=== PATIENT | female | born 1985 | race African-American/Black ===

== ENCOUNTER 2017-04-06 06:26 | Emergency (ER) | payer SELFPAY ==
[~2017-04-06] VITALS: Ht 157.5 cm; Wt 56.4 kg
[2017-04-06 06:27] VITALS: BP 114/73; PULSE 78; RESP 16; TEMP 97.9; O2SAT 97
[2017-04-06] MEDS ORDERED: SODIUM CHLOR 0.9% 1000 ML INJ 1,000 ML IV SCH (06:54)
--- NOTE | 2017-04-06 06:57 | PD ---
HPI Chief Complaint: Abdominal Pain Time Seen by Provider: 06:50 Travel History International Travel<30 days: No Contact w/Intl Traveler<30days: No Traveled to known affect area: No History of Present Illness HPI The patient is a 32-year-old [place] female who presents to the emergency department for epigastric abdominal pain, nausea, vomiting, and diarrhea. The patient's symptoms started at midnight last night. She does complain of intermittent sharp epigastric abdominal pain that radiates to the back and is associated with nausea, vomiting, diarrhea. The diarrhea is described as loose, watery, brown, without any visible blood. She does have a history of similar symptoms in the past and states her enzymes were elevated, she was admitted for 3 days. She denies any known history of pancreatitis or gallstones. She does note a previous section. She is currently on Mirena, denies . She denies any dysuria, frequency, urgency, or vaginal bleeding. She denies any assisted fever. Symptoms are moderate without any alleviating or exacerbating factors. [facility] Past Medical History Medical History: Denies Significant Hx Tetanus Vaccination: < 5 Years Influenza Vaccination: No ?: Not LMP: JEFF : 1 Para: 1 Past Surgical History Section: Yes Social History Alcohol Use: Yes Tobacco Use: No Substance Use: No Allergies-Medications (Allergen,Severity, Reaction): Coded Allergies: No Known Allergies (Unverified , 04/06/17) Reported Meds & Prescriptions Reported Meds & Active Scripts Active No Active Prescriptions or Reported Medications Review of Systems Except as stated in HPI: all other systems reviewed are Neg General / Constitutional: No: Fever Cardiovascular: No: Chest Pain or Discomfort Respiratory: No: Shortness of Breath Gastrointestinal: Positive: Nausea, Vomiting, Diarrhea, Abdominal Pain Genitourinary: No: Urgency, Frequency, Dysuria, Hematuria, Discharge, Vaginal Bleeding Physical Exam Narrative GENERAL: Awake, alert, pleasant 32-year-old female who appears her stated age and is in no acute respiratory distress. SKIN: Focused skin assessment warm/dry. HEAD: Atraumatic. Normocephalic. EYES: Pupils equal and round. No scleral icterus. No injection or drainage. ENT: No nasal bleeding or discharge. Mucous membranes pink and moist. NECK: Trachea midline. No JVD. CARDIOVASCULAR: Regular rate and rhythm. No murmur appreciated. RESPIRATORY: No accessory muscle use. Clear to auscultation. Breath sounds equal bilaterally. GASTROINTESTINAL: Abdomen soft, non-tender, nondistended. No guarding or rigidity. MUSCULOSKELETAL: No obvious deformities. No clubbing. No cyanosis. No edema. NEUROLOGICAL: Awake and alert. No obvious cranial nerve deficits. Motor grossly within normal limits. Normal speech. PSYCHIATRIC: Appropriate mood and affect; insight and judgment normal. Data Data Last Documented VS Vital Signs Date Time Temp Pulse Resp B/P (MAP) Pulse Ox O2 Delivery O2 Flow Rate FiO2 04/06/17 07:05 16 04/06/17 06:27 97.9 78 97 Room Air Orders Orders Complete Blood Count With Diff (04/06/17 06:54) Comprehensive Metabolic Panel (04/06/17 06:54) Lipase (04/06/17 06:54) Iv Access Insert/Monitor (04/06/17 06:54) Ecg Monitoring (04/06/17 06:54) Oximetry (04/06/17 06:54) Sodium Chlor 0.9% 1000 Ml Inj (Ns 1000 M (04/06/17 06:54) Sodium Chloride 0.9% Flush (Ns Flush) (04/06/17 07:00) Famotidine Inj (Pepcid Inj) (04/06/17 07:00) Al-Mag Hy-Si 40-40-4 Mg/Ml Liq (Mag-Al P (04/06/17 07:00) Lidocaine 2% Viscous (Xylocaine 2% Visco (04/06/17 07:00) Labs Laboratory Tests Test 04/06/17 07:15 White Blood Count 8.6 TH/MM3 Red Blood Count 4.25 MIL/MM3 Hemoglobin 13.9 GM/DL Hematocrit 39.6 % Mean Corpuscular Volume 93.4 FL Mean Corpuscular Hemoglobin 32.8 PG Mean Corpuscular Hemoglobin Concent 35.1 % Red Cell Distribution Width 13.1 % Platelet Count 292 TH/MM3 Mean Platelet Volume 8.0 FL Neutrophils (%) (Auto) 71.0 % Lymphocytes (%) (Auto) 20.7 % Monocytes (%) (Auto) 7.3 % Eosinophils (%) (Auto) 0.7 % Basophils (%) (Auto) 0.3 % Neutrophils # (Auto) 6.1 TH/MM3 Lymphocytes # (Auto) 1.8 TH/MM3 Monocytes # (Auto) 0.6 TH/MM3 Eosinophils # (Auto) 0.1 TH/MM3 Basophils # (Auto) 0.0 TH/MM3 CBC Comment DIFF FINAL Differential Comment Blood Urea Nitrogen 8 MG/DL Creatinine 1.02 MG/DL Random Glucose 94 MG/DL Total Protein 8.4 GM/DL Albumin 4.2 GM/DL Calcium Level 9.1 MG/DL Alkaline Phosphatase 69 U/L Aspartate Amino Transf (AST/SGOT) 23 U/L Alanine Aminotransferase (ALT/SGPT) 20 U/L Total Bilirubin 0.6 MG/DL Sodium Level 139 MEQ/L Potassium Level 4.0 MEQ/L Chloride Level 106 MEQ/L Carbon Dioxide Level 24.1 MEQ/L Anion Gap 9 MEQ/L Estimat Glomerular Filtration Rate 76 ML/MIN Lipase 78 U/L MDM Medical Decision Making Medical Screen Exam Complete: Yes Emergency Medical Condition: Yes Medical Record Reviewed: Yes Interpretation(s) Laboratory Tests Test 04/06/17 07:15 White Blood Count 8.6 TH/MM3 Red Blood Count 4.25 MIL/MM3 Hemoglobin 13.9 GM/DL Hematocrit 39.6 % Mean Corpuscular Volume 93.4 FL Mean Corpuscular Hemoglobin 32.8 PG Mean Corpuscular Hemoglobin Concent 35.1 % Red Cell Distribution Width 13.1 % Platelet Count 292 TH/MM3 Mean Platelet Volume 8.0 FL Neutrophils (%) (Auto) 71.0 % Lymphocytes (%) (Auto) 20.7 % Monocytes (%) (Auto) 7.3 % Eosinophils (%) (Auto) 0.7 % Basophils (%) (Auto) 0.3 % Neutrophils # (Auto) 6.1 TH/MM3 Lymphocytes # (Auto) 1.8 TH/MM3 Monocytes # (Auto) 0.6 TH/MM3 Eosinophils # (Auto) 0.1 TH/MM3 Basophils # (Auto) 0.0 TH/MM3 CBC Comment DIFF FINAL Differential Comment Blood Urea Nitrogen 8 MG/DL Creatinine 1.02 MG/DL Random Glucose 94 MG/DL Total Protein 8.4 GM/DL Albumin 4.2 GM/DL Calcium Level 9.1 MG/DL Alkaline Phosphatase 69 U/L Aspartate Amino Transf (AST/SGOT) 23 U/L Alanine Aminotransferase (ALT/SGPT) 20 U/L Total Bilirubin 0.6 MG/DL Sodium Level 139 MEQ/L Potassium Level 4.0 MEQ/L Chloride Level 106 MEQ/L Carbon Dioxide Level 24.1 MEQ/L Anion Gap 9 MEQ/L Estimat Glomerular Filtration Rate 76 ML/MIN Lipase 78 U/L Differential Diagnosis Differential diagnosis includes gastritis, gastroenteritis, food poisoning, pancreatitis, biliary colic, cholecystitis, choledocholithiasis, viral syndrome , peptic ulcer disease. Narrative Course IV was established, labs are drawn and sent, and the patient was placed on cardiac telemetry monitoring and continuous pulse oximetry monitoring. The patient was administered GI cocktail, Pepcid, and IV fluids. Lipase and LFTs were sent to lab. The patient's white count is unremarkable. LFTs and lipase are normal, no evidence of pancreatitis. The patient was able to tolerate a by mouth challenge with water in the emergency department. The patient was reevaluated at 8:23 AM. The patient's symptoms have improved. The patient will be discharged home with Zofran as needed, is advised to have a clear liquid diet and advance diet as tolerated. Follow-up with a primary physician. Return if symptoms worsen or progress. Diagnosis Primary Impression: Gastroenteritis Patient Instructions: General Instructions Additional Instructions: Zofran as directed. Clear liquid diet and advance as tolerated. Please provide the patient a copy of her labs at discharge. Follow-up with her primary physician. Return if symptoms worsen or progress. Med/Other Pt SpecificInfo: Prescription(s) given Scripts Ondansetron Odt (Zofran Odt) 4 Mg Tab 4 MG SL Q6HR Y for Nausea/Vomiting, #7 TAB 0 Refills Prov: Shaw Rodriguez MD 04/06/17 Disposition: DISCHARGE HOME Condition: Stable Shaw Rodriguez MD Apr 06, 2017 06:57
[2017-04-06] MEDS ORDERED: LIDOCAINE VISCOUS 2% SOLN 15 ML UDC PO ONE (07:00)
[2017-04-06] MEDS ORDERED: SODIUM CHLORIDE 0.9% FLUSH 10 ML FLUSH IV FLUSH PRN (07:00)
[2017-04-06] MEDS ORDERED: FAMOTIDINE 20 MG/2 ML VIAL IV PUSH ONE (07:00)
[2017-04-06] MEDS ORDERED: ALUMINUM/MAGNESIUM/SIMETH 30 ML CUP PO ONE (07:00)
[2017-04-06 07:05] VITALS: RESP 16
[2017-04-06 07:28] LABS: AUTOMATED NEUTROPHIL # 6.1 TH/MM3 (1.8-7.7); BASOPHIL % 0.3 % (0.0-2.0); EOSINOPHIL # 0.1 TH/MM3 (0-0.4); EOSINOPHIL % 0.7 % (0.0-4.0); HEMATOCRIT 39.6 % (35.0-46.0); HEMOGLOBIN 13.9 GM/DL (11.6-15.3); LYMPH % 20.7 % (9.0-44.0); LYMPHOCYTE # 1.8 TH/MM3 (1.0-4.8); MEAN CELL VOLUME 93.4 FL (80.0-100.0); MEAN CORPUSCULAR HEMOGLOBIN 32.8 PG (27.0-34.0); MEAN CORPUSCULAR HGB CONC 35.1 % (32.0-36.0); MONO % 7.3 % (0.0-8.0); MONOCYTE # 0.6 TH/MM3 (0-0.9); PLATELET COUNT 292 TH/MM3 (150-450); RED BLOOD COUNT 4.25 MIL/MM3 (4.00-5.30); RED CELL DISTRIBUTION WIDTH 13.1 % (11.6-17.2); WHITE BLOOD COUNT 8.6 TH/MM3 (4.0-11.0)
[2017-04-06 08:02] LABS: ALT (GPT) 20 U/L (10-53)
[2017-04-06 08:05] LABS: ALKALINE PHOSPHATASE 69 U/L (45-117); TOTAL BILIRUBIN ADULT 0.6 MG/DL (0.2-1.0); TOTAL PROTEIN 8.4 GM/DL (6.4-8.2)
[2017-04-06 08:11] LABS: ALBUMIN 4.2 GM/DL (3.4-5.0); AST (GOT) 23 U/L (15-37); BICARBONATE 24.1 MEQ/L (21.0-32.0); BLOOD UREA NITROGEN 8 MG/DL (7-18); CALCIUM 9.1 MG/DL (8.5-10.1); CHLORIDE 106 MEQ/L (98-107); CREATININE 1.02 MG/DL (0.50-1.00); GLOMERULAR FILTRATION RATE 76 ML/MIN (>89); GLUCOSE,RANDOM 94 MG/DL (74-106); LIPASE 78 U/L (73-393); SODIUM (NA) 139 MEQ/L (136-145)
[2017-04-06] MEDS ORDERED: ZOFR4TAB3 SL (08:27)
== END 2017-04-06 08:35 | disposition home or self-care (01) ==
LOC: NEPC 06:26
DX: K52.9 Noninfective gastroenteritis and colitis, unspecified (principal)
CPT/HCPCS: 80053; 83690; 85025; 96361; 96374; 99284; J7030

== ENCOUNTER 2017-09-03 17:12 | Emergency (ER) | payer MEDICAID ==
[~2017-09-03] VITALS: Ht 157.5 cm; Wt 55.0 kg
[~2017-09-03 17:12] MED LIST: ZOFR4TAB3 SL
[2017-09-03 17:20] VITALS: PULSE 96; RESP 18; TEMP 97.8; O2SAT 100
--- NOTE | 2017-09-03 19:27 | PD ---
HPI Chief Complaint: Chest Pain Time Seen by Provider: 19:15 Travel History International Travel<30 days: No Contact w/Intl Traveler<30days: No Traveled to known affect area: No History of Present Illness HPI This is a 32-year-old female who presents for evaluation. She reports that since yesterday she has had a pressure in her left-sided chest and upper abdomen that is reproduced when she swallows. Symptoms are mild, aggravated by swallowing with no relieving factors. There is some associated discomfort in her left arm and left leg as well. She denies sore throat. She denies foreign body sensation in her throat. She denies shortness of breath, cough, congestion , nausea or vomiting, flank pain, dysuria, fevers or chills, headache. She tried using [id number] Tums but her symptoms persisted. She denies any kdya-eno-tufotok NSAID use. She has no other complaints at this time. PFSH Past Medical History ?: Not : 1 Para: 1 Past Surgical History Section: Yes Social History Alcohol Use: Yes Tobacco Use: No Substance Use: No Allergies-Medications (Allergen,Severity, Reaction): Coded Allergies: No Known Allergies (Unverified , 09/03/17) Reported Meds & Prescriptions Reported Meds & Active Scripts Active Zofran Odt (Ondansetron Odt) 4 Mg Tab 4 Mg SL Q6HR PRN Review of Systems Except as stated in HPI: all other systems reviewed are Neg Physical Exam Narrative GENERAL: Well-developed well-nourished female in no acute distress SKIN: Warm and dry. HEAD: Atraumatic. Normocephalic. EYES: Pupils equal and round. No scleral icterus. No injection or drainage. ENT: No nasal bleeding or discharge. Mucous membranes pink and moist. NECK: Trachea midline. No JVD. CARDIOVASCULAR: Regular rate and rhythm. No murmur appreciated. RESPIRATORY: No accessory muscle use. Clear to auscultation. Breath sounds equal bilaterally. GASTROINTESTINAL: Abdomen soft, mild left upper quadrant tenderness to palpation without guarding MUSCULOSKELETAL: No obvious deformities. No edema. NEUROLOGICAL: Awake and alert. No obvious cranial nerve deficits. Motor grossly within normal limits. Normal speech. PSYCHIATRIC: Appropriate mood and affect; insight and judgment normal. Data Data Last Documented VS Vital Signs Date Time Temp Pulse Resp B/P (MAP) Pulse Ox O2 Delivery O2 Flow Rate FiO2 09/03/17 19:39 18 98 Room Air 09/03/17 19:30 138/67 (90) 09/03/17 17:20 97.8 96 Orders Orders Electrocardiogram (09/03/17 ) Electrocardiogram (09/03/17 19:21) Ckmb (Isoenzyme) Profile (09/03/17 19:21) Complete Blood Count With Diff (09/03/17:21) Comprehensive Metabolic Panel (09/03/17:) Magnesium (Mg) (09/03/17:21) Troponin I (09/03/17:21) Lipase (09/03/17 19:21) Chest, Single Ap (09/03/17:21) Ecg Monitoring (09/03/17:) Ed Urine Pregnancytest Poc (09/03/17:21) Pantoprazole Inj (Protonix Inj) (09/03/17 19:30) Al-Mag Hy-Si 40-40-4 Mg/Ml Liq (Mag-Al P (09/03/17 19:30) Lidocaine 2% Viscous (Xylocaine 2% Visco (09/03/17 19:30) CKMB (09/03/17 19:50) CKMB% (09/03/17 19:50) Labs Laboratory Tests Test 09/03/17 19:50 White Blood Count 5.1 TH/MM3 Red Blood Count 4.61 MIL/MM3 Hemoglobin 14.4 GM/DL Hematocrit 42.5 % Mean Corpuscular Volume 92.1 FL Mean Corpuscular Hemoglobin 31.2 PG Mean Corpuscular Hemoglobin Concent 33.9 % Red Cell Distribution Width 13.3 % Platelet Count 279 TH/MM3 Mean Platelet Volume 8.2 FL Neutrophils (%) (Auto) 43.6 % Lymphocytes (%) (Auto) 46.7 % Monocytes (%) (Auto) 8.4 % Eosinophils (%) (Auto) 0.9 % Basophils (%) (Auto) 0.4 % Neutrophils # (Auto) 2.2 TH/MM3 Lymphocytes # (Auto) 2.4 TH/MM3 Monocytes # (Auto) 0.4 TH/MM3 Eosinophils # (Auto) 0.0 TH/MM3 Basophils # (Auto) 0.0 TH/MM3 CBC Comment DIFF FINAL Differential Comment Blood Urea Nitrogen 9 MG/DL Creatinine 1.03 MG/DL Random Glucose 82 MG/DL Total Protein 8.5 GM/DL Albumin 4.3 GM/DL Calcium Level 9.5 MG/DL Magnesium Level 1.8 MG/DL Alkaline Phosphatase 72 U/L Aspartate Amino Transf (AST/SGOT) 19 U/L Alanine Aminotransferase (ALT/SGPT) 19 U/L Total Bilirubin 0.5 MG/DL Sodium Level 138 MEQ/L Potassium Level 4.0 MEQ/L Chloride Level 106 MEQ/L Carbon Dioxide Level 23.6 MEQ/L Anion Gap 8 MEQ/L Estimat Glomerular Filtration Rate 76 ML/MIN Total Creatine Kinase 120 U/L Troponin I LESS THAN 0.02 NG/ML Lipase 120 U/L MDM Medical Decision Making Medical Screen Exam Complete: Yes Emergency Medical Condition: Yes Medical Record Reviewed: Yes Differential Diagnosis Peptic ulcer disease, GERD, esophageal web, achalasia, acute coronary syndrome, pericarditis, myocarditis, pulmonary embolism, pneumothorax, esophagitis Narrative Course 32-year-old female who for 2 days has been experiencing discomfort in the left side of her chest and upper abdomen when she swallows. She appears well. Thanks for basic lab work, chest x-ray. An EKG was obtained in triage revealing sinus rhythm with a 89, normal axis, T-wave inversions noted in V1 and V2. She will be given a GI cocktail and Protonix. Lab work and imaging studies are unremarkable. Pelvic examination she does feel improved. Her symptoms would be suspicious for esophagitis or gastritis. The plan is to have her follow-up with a primary care physician if symptoms persist for GI referral. Stable for discharge. Diagnosis Primary Impression: Gastritis Additional Instructions: Avoid [id number] ibuprofen/naproxen/Advil/Motrin/Aleve products. Follow- up with primary care physician if symptoms persist. Return for any emergent medical conditions. Med/Other Pt SpecificInfo: No Change to Meds Disposition: 01 DISCHARGE HOME Condition: Stable Adrian Denney Sep 03, 2017 19:27
[2017-09-03 19:30] VITALS: BP 138/67
[2017-09-03] MEDS ORDERED: LIDOCAINE VISCOUS 2% SOLN 15 ML UDC PO ONE (19:30)
[2017-09-03] MEDS ORDERED: PANTOPRAZOLE SODIUM 40 MG VIAL IVP ONE (19:30)
[2017-09-03] MEDS ORDERED: ALUMINUM/MAGNESIUM/SIMETH 30 ML CUP PO ONE (19:30)
--- NOTE | 2017-09-03 19:59 | RADRPT ---
EXAM DATE: 09/03/2017 7:34 PM EDT AGE/SEX: 32 years / Female INDICATIONS: Left side chest pain. CLINICAL DATA: This is the patient's initial encounter. Patient reports that signs and symptoms have been present for 1 day and indicates a pain score of 3/10. MEDICAL/SURGICAL HISTORY: None. None. COMPARISON: No prior exams available for comparison. FINDINGS: A single AP view of the chest demonstrates the lungs to be symmetrically aerated without evidence of mass, infiltrate or effusion. The cardiomediastinal contours are unremarkable. Osseous structures a re intact. CONCLUSION: 1. No acute cardiopulmonary disease. Electronically signed by: Juliano Solano MD 09/03/2017 7:58 PM EDT
[2017-09-03 20:27] LABS: AUTOMATED NEUTROPHIL # 2.2 TH/MM3 (1.8-7.7); BASOPHIL % 0.4 % (0.0-2.0); EOSINOPHIL % 0.9 % (0.0-4.0); HEMATOCRIT 42.5 % (35.0-46.0); HEMOGLOBIN 14.4 GM/DL (11.6-15.3); LYMPH % 46.7 % (9.0-44.0); LYMPHOCYTE # 2.4 TH/MM3 (1.0-4.8); MEAN CELL VOLUME 92.1 FL (80.0-100.0); MEAN CORPUSCULAR HEMOGLOBIN 31.2 PG (27.0-34.0); MEAN CORPUSCULAR HGB CONC 33.9 % (32.0-36.0); MEAN PLATELET VOLUME 8.2 FL (7.0-11.0); MONO % 8.4 % (0.0-8.0); MONOCYTE # 0.4 TH/MM3 (0-0.9); NEUT % 43.6 % (16.0-70.0); PLATELET COUNT 279 TH/MM3 (150-450); RED BLOOD COUNT 4.61 MIL/MM3 (4.00-5.30); RED CELL DISTRIBUTION WIDTH 13.3 % (11.6-17.2); WHITE BLOOD COUNT 5.1 TH/MM3 (4.0-11.0)
[2017-09-03 20:40] LABS: ALBUMIN 4.3 GM/DL (3.4-5.0); AST (GOT) 19 U/L (15-37); BICARBONATE 23.6 MEQ/L (21.0-32.0); BLOOD UREA NITROGEN 9 MG/DL (7-18); CALCIUM 9.5 MG/DL (8.5-10.1); CHLORIDE 106 MEQ/L (98-107); CREATININE 1.03 MG/DL (0.50-1.00); GLOMERULAR FILTRATION RATE 76 ML/MIN (>89); GLUCOSE,RANDOM 82 MG/DL (74-106); MAGNESIUM 1.8 MG/DL (1.5-2.5); SODIUM (NA) 138 MEQ/L (136-145)
[2017-09-03 20:41] LABS: ALT (GPT) 19 U/L (10-53)
[2017-09-03 20:45] LABS: ALKALINE PHOSPHATASE 72 U/L (45-117); TOTAL BILIRUBIN ADULT 0.5 MG/DL (0.2-1.0); TOTAL PROTEIN 8.5 GM/DL (6.4-8.2); TROPONIN I LESS THAN 0.02 NG/ML (0.02-0.05)
--- NOTE | 2017-09-03 21:20 | PD ---
Data Data Last Documented VS Vital Signs Date Time Temp Pulse Resp B/P (MAP) Pulse Ox O2 Delivery O2 Flow Rate FiO2 09/03/17 19:39 18 98 Room Air 09/03/17 19:30 138/67 (90) 09/03/17 17:20 97.8 96 Orders Orders Electrocardiogram (09/03/17 ) Electrocardiogram (09/03/17 19:21) Ckmb (Isoenzyme) Profile (09/03/17 19:21) Complete Blood Count With Diff (09/03/17:21) Comprehensive Metabolic Panel (09/03/17 19:21) Magnesium (Mg) (09/03/17 19:21) Troponin I (09/03/17:21) Lipase (09/03/17:21) Chest, Single Ap (09/03/17:21) Ecg Monitoring (09/03/17:21) Ed Urine Pregnancytest Poc (09/03/17 19:21) Pantoprazole Inj (Protonix Inj) (09/03/17 19:30) Al-Mag Hy-Si 40-40-4 Mg/Ml Liq (Mag-Al P (09/03/17 19:30) Lidocaine 2% Viscous (Xylocaine 2% Visco (09/03/17 19:30) CKMB (09/03/17 19:50) CKMB% (09/03/17 19:50) Ed Discharge Order (09/03/17 20:49) Labs Laboratory Tests Test 09/03/17 19:50 White Blood Count 5.1 TH/MM3 Red Blood Count 4.61 MIL/MM3 Hemoglobin 14.4 GM/DL Hematocrit 42.5 % Mean Corpuscular Volume 92.1 FL Mean Corpuscular Hemoglobin 31.2 PG Mean Corpuscular Hemoglobin Concent 33.9 % Red Cell Distribution Width 13.3 % Platelet Count 279 TH/MM3 Mean Platelet Volume 8.2 FL Neutrophils (%) (Auto) 43.6 % Lymphocytes (%) (Auto) 46.7 % Monocytes (%) (Auto) 8.4 % Eosinophils (%) (Auto) 0.9 % Basophils (%) (Auto) 0.4 % Neutrophils # (Auto) 2.2 TH/MM3 Lymphocytes # (Auto) 2.4 TH/MM3 Monocytes # (Auto) 0.4 TH/MM3 Eosinophils # (Auto) 0.0 TH/MM3 Basophils # (Auto) 0.0 TH/MM3 CBC Comment DIFF FINAL Differential Comment Blood Urea Nitrogen 9 MG/DL Creatinine 1.03 MG/DL Random Glucose 82 MG/DL Total Protein 8.5 GM/DL Albumin 4.3 GM/DL Calcium Level 9.5 MG/DL Magnesium Level 1.8 MG/DL Alkaline Phosphatase 72 U/L Aspartate Amino Transf (AST/SGOT) 19 U/L Alanine Aminotransferase (ALT/SGPT) 19 U/L Total Bilirubin 0.5 MG/DL Sodium Level 138 MEQ/L Potassium Level 4.0 MEQ/L Chloride Level 106 MEQ/L Carbon Dioxide Level 23.6 MEQ/L Anion Gap 8 MEQ/L Estimat Glomerular Filtration Rate 76 ML/MIN Total Creatine Kinase 120 U/L Creatine Kinase MB 0.6 NG/ML Troponin I LESS THAN 0.02 NG/ML Lipase 120 U/L MDM Supervised Visit with SELVIN: Yes Narrative Course The history, exam, and medical decision-making in the associated mid-level provider note were completed with my assistance. I reviewed and agree with the findings presented. I attest that I had a [id number] encounter with the patient on the same day, and personally performed and documented my assessment and findings in the medical record. *My assessment and Findings: 32-year-old woman, generally well-appearing, presents with pressure-like discomfort in her chest when she swallows more on the left side rating arm and leg. Very unusual complaints. She looks very well. Analgesic she has a dissection. Chest x-ray does show any evidence of mass. I think she is safe for outpatient follow-up with the symptoms persist. Likely GI in nature. Diagnosis Primary Impression: Gastritis Patient Instructions: General Instructions, Gastritis (ED) Departure Forms: Tests/Procedures Additional Instruction: Avoid [id number] ibuprofen/naproxen/Advil/Motrin/Aleve products. Follow- up with primary care physician if symptoms persist. Return for any emergent medical conditions. Disposition: 01 DISCHARGE HOME Condition: Stable Willis Dowell MD Sep 03, 2017 21:20
--- NOTE | 2017-09-04 07:32 | EKG ---
Date Performed: 09/03/2017 Time Performed: 17:28:43 PTAGE: 32 years EKG: Sinus rhythm NORMAL ECG NO PREVIOUS TRACING DOCTOR: Willis Baires Interpretating Date/Time 09/04/2017 07:30:04
== END 2017-09-03 21:24 | disposition home or self-care (01) ==
LOC: NEPD 17:12
DX: K29.70 Gastritis, unspecified, without bleeding (principal)
CPT/HCPCS: 71045; 80053; 82550; 82552; 83690; 83735; 84484; 84703; 85025; 93005; 96374; 99285; C9113